=== PATIENT | male | born 1970 | race Caucasian/White ===

== ENCOUNTER 2024-07-20 10:39 | Outpatient (CLI) | payer MEDICARE, MEDICAID ==
[2024-07-20] MEDS ORDERED: iohexol 350MG/ML 100ml bottle IV ONE (11:06)
[2024-07-20] MEDS ORDERED: iohexol 350 MG/ML 50ML vial IV ONE (11:07)
[2024-07-20 11:36] LABS: ANION GAP 14 (8-16); BLOOD UREA NITROGEN 57 MG/DL (7-18); BUN/CREATININE RATIO 6.1 (10.0-20.0); CHLORIDE 97 MMOL/L (99-107); CREATININE 9.28 MG/DL (0.60-1.10); GLUCOSE 171 MG/DL (70-104); POTASSIUM 5.4 MMOL/L (3.5-5.1); SODIUM 135 MMOL/L (135-145); TOTAL CARBON DIOXIDE 23.9 MMOL/L (24-32); eGFR 6 ML/MIN
== END 2024-07-20 23:59 | disposition home or self-care (01) ==
LOC: RAD 10:39
PROVIDERS: ATTEND Internal Medicine Interventional Cardiology
DX: I70.213 Atherosclerosis of native arteries of extremities with intermittent claudication, bilateral legs (principal); I50.22 Chronic systolic (congestive) heart failure; K80.20 Calculus of gallbladder without cholecystitis without obstruction; J98.11 Atelectasis; N26.1 Atrophy of kidney (terminal); J98.4 Other disorders of lung
CPT/HCPCS: 36415; 75635; 80048; Q9967